=== PATIENT | female | born 1965 | race African-American/Black ===

== ENCOUNTER 2019-02-20 20:59 | Emergency (ER) | payer OTHER ==
[2019-02-21] MEDS: ACETAMINOPHEN 325 MG TAB PO (01:49)
[2019-02-21] MEDS: IBUPROFEN 200 MG TAB PO (01:49)
== END 2019-02-21 01:50 | disposition home or self-care (01) ==
LOC: FTE 02-21 01:50
DX: M23.91 Unspecified internal derangement of right knee (principal); J45.909 Unspecified asthma, uncomplicated; F17.210 Nicotine dependence, cigarettes, uncomplicated
CPT/HCPCS: 29505; 99282-25